=== PATIENT | female | born 1955 | race Caucasian/White ===

== ENCOUNTER 2016-11-19 12:35 | Emergency (ER) | payer OTHER ==
[2016-11-19] MEDS ORDERED: HYDROcodone/Acetaminophen 5/325 mg Tablet ONE (13:14)
[2016-11-19] MEDS ORDERED: Lidocaine 1% 20 ML MDV ONE (13:17)
--- NOTE | 2016-11-19 14:18 | ERRECORD ---
[facility] EMERGENCY RECORD HPI HAND (13:53 PMYE) CHIEF COMPLAINT: Patient presents for evaluation of injury, to the right hand. MECHANISM OF INJURY: Mechanism of injury fall. LOCATION: right 5th finger. QUALITY: Pain is sharp in nature. SEVERITY: Maximum severity of symptoms moderate, Currently symptoms are moderate. TIME COURSE: Sudden onset of symptoms. ASSOCIATED WITH: 61 y/o Female s/p mechanical fall in which she tripped and fell forward injuring her rt 5th digit. noticeable deformity to digit. Also hit head off a cooler. No LOC No Amnesia to event. No Vomiting. EXACERBATED BY: Patient's condition exacerbated by movement. RELIEVED BY: Patient's condition relieved by rest. ROS (13:55 PMYE) CONSTITUTIONAL: Negative constitutional review of systems, Historian denies chills, denies fatigue, denies fever. EYES: Negative eye review of systems, Historian denies eye pain, denies eye redness, denies eye discharge. ENT: Negative ears, nose, throat review of systems, Historian denies dysphasia, denies epistaxis, denies otalgia, denies sore throat. CARDIOVASCULAR: Negative cardiovascular review of systems, Historian denies chest pain, denies dyspnea on exertion, denies syncope, denies palpitations. RESPIRATORY: Negative respiratory review of systems, Historian denies cough, denies shortness of breath, denies wheezing. GI: Negative gastrointestinal review of systems, Historian denies abdominal pain, denies constipation, denies diarrhea, denies nausea, denies vomiting. GENITOURINARY FEMALE: Negative genitourinary review of systems, Historian denies dysuria, denies urgency, denies vaginal bleeding, denies vaginal discharge. MUSCULOSKELETAL: Historian denies arthralgias, reports injury, denies myalgias. SKIN: Negative skin review of systems, Historian denies rash, denies skin changes. NEUROLOGIC: Negative neurologic review of systems, Historian denies confusion, denies focal weakness, denies headache. PSYCHIATRIC: Negative psychiatric review of systems. 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 PSYCHIATRIC HISTORY: No previous psychiatric history. SOCIAL HISTORY: Patient has no smoking history, Patient denies alcohol use, Patient denies drug use. &a-1R&a+25V*p+0X*u1678X*c202B*c15G*c2P*p-0X&a-25V&a+1R Name: Tigist Blunt : 1955 F61 MedRec: [id number] AcctNum: [id number] Prepared: Pamela Nov 19, 2016 20:09 by Interface Page 1 of 3 pMD [facility] EMERGENCY RECORD KNOWN ALLERGIES No Known Drug Allergies CURRENT MEDICATIONS Stalevo 75: TABLET : Strength - 18.75 mg-75 mg-200 mg : ORAL Patient Dose: Oral 3 times a day. (12:44 EPIE) Requip XL: TABLET, EXTENDED RELEASE 24 HR : Strength - 12 mg : ORAL Patient Dose: 12 mg Oral once a day. (12:45 EPIE) VITAL SIGNS (12:38 EPIE) VITAL SIGNS: BP: 165/72, Pulse: 78, Resp: 20 (Non-Labored), Temp: 97.9 (Oral), Pain: 9, O2 sat: 99 on Room Air, Time: 11/19/2016 12:38. PHYSICAL EXAM CONSTITUTIONAL: Vital Signs Reviewed, Patient afebrile, Pulse normal, Blood pressure normal, Respiratory rate normal, Patient appears non toxic. (13:55 PMYE) HEAD: Head exam included findings of head atraumatic, normocephalic. (13:55 PMYE) EYES: Eye exam included findings of eyelids normal to inspection, Pupils equally round and reactive to light, Extraocular muscles intact. (13:55 PMYE) ENT: ENT exam normal, Pharynx exam normal, Uvula exam normal, Tonsil exam normal. (13:55 PMYE) NECK: Neck exam normal. (13:55 PMYE) RESPIRATORY CHEST: Respiratory and chest exam normal, Breath sounds clear, No wheezing, No rales. (13:55 PMYE) ABDOMEN FEMALE: Abdominal exam normal, Abdominal exam included findings of abdomen nontender, Bowel sounds normal. (13:55 PMYE) BACK: Back exam normal. (13:55 PMYE) UPPER EXTREMITY: Rt 5th finger is ulnarly deformed w/ approx. 20 degrees of displacement. NV intact. (13:56 PMYE) NEURO: Neuro exam normal, [place] coma scale 15, Neuro exam findings include patient oriented to person, place and time, Speech normal. (13:55 PMYE) SKIN: Skin exam normal. (13:55 PMYE) PSYCHIATRIC: Psychiatric exam normal, Psychiatric exam included findings of patient oriented to person place and time, Normal affect. (13:55 PMYE) MEDICATION ADMINISTRATION SUMMARY Drug Name: Wood, Dose Ordered: 5-325 mg, Route: Oral, Status: Given, Time: 13:20 11/19/2016, Detailed record available in Medication Service section. DOCTOR NOTES (14:03 PMYE) TEXT: Fracture reduced w/out issue or complication. NV &a-1R&a+25V*p+0X*g6051U*c202B*c15G*c2P*p-0X&a-25V&a+1R Name: Tigist Blunt : 1955 F61 MedRec: [id number] AcctNum: [id number] Prepared: Pamela Nov 19, 2016 20:09 by Interface Page 2 of 3 pMD [facility] EMERGENCY RECORD intact s/p. will f/u w/ ortho. Wood 5/325 disp: 15 si po q 4 PRN pain prescribed. PROBLEM LIST No recorded problems DIAGNOSIS (14:02 PMYE) FINAL: PRIMARY: proximal 5th phalynx fracture. PRESCRIPTION No recorded prescriptions DISPOSITION PATIENT: Disposition Type: Discharge, Disposition: *Discharge Home. (14:02 PMYE) Patient left the department. (14:13 EPIE) Grant: EPIE=MAYA De La Torre, Nohemi PMYE=DO Velásquez Paul &a-1R&a+25V*p+0X*u1315H*c202B*c15G*c2P*p-0X&a-25V&a+1R Name: Tigist Blunt Bertrand : 1955 F61 MedRec: [id number] AcctNum: [id number] Prepared: Pamela Nov 19, 2016 20:09 by Interface Page 3 of 3 pMD MTDD
--- NOTE | 2016-11-19 14:25 | PICIS ---
[facility] EMERGENCY RECORD TRIAGE ([place] Nov 19, 2016 12:40 EPIE) TRIAGE NOTES: Pt reports that she slipped in the garage. Pt reports hitting forehead on ground aswell as knee and hands. Pt has deforemity to right 5th finger. No LOC. Not on blood thinners. Pt reports no head pain but mostly finger pain. ([place] Nov 19, 2016 12:40 EPIE) PATIENT: NAME: Tigist Blunt, AGE: 61, GENDER: female, : Sun1955, TIME OF GREET: [place] Nov 19, 2016 12:35, PREFERRED LANGUAGE: Niuean, ETHNICITY: Not or , ECODE BILLING MAP: [facility], Zip Code: [address], KG WEIGHT: 81.19, PHONE: , , , PERSON ID: [id number]. ([place] Nov 19, 2016 12:40 EPIE) COMPLAINT: FALL/HEAD & RT LITTLE FINGER INJURY. ([place] Nov 19, 2016 12:40 EPIE) ADMISSION: URGENCY: 3 Urgent, ADMISSION SOURCE: Home, TRANSPORT: CAR, BED: TRIAGE. ([place] Nov 19, 2016 12:40 EPIE) TRIAGE SCREENING: Patient denies suicidal ideation, Patient denies presence of domestic violence. (12:42 EPIE) TREATMENTS IN PROGRESS: Treatments given Prehospital: none. (12:42 EPIE) PROVIDERS: TRIAGE NURSE: Nohemi De La Torre RN. ([place] Nov 19, 2016 12:40 EPIE) VITAL SIGNS: BP 165/72, Pulse 78, Resp 20, (Non-Labored), Temp 97.9, (Oral), Pain 9, O2 Sat 99, on Room Air, Time 11/19/2016 12:38. (12:38 EPIE) KNOWN ALLERGIES No Known Drug Allergies CURRENT MEDICATIONS Stalevo 75: TABLET : Strength - 18.75 mg-75 mg-200 mg : ORAL Patient Dose: Oral 3 times a day. (12:44 EPIE) Requip XL: TABLET, EXTENDED RELEASE 24 HR : Strength - 12 mg : ORAL Patient Dose: 12 mg Oral once a day. (12:45 EPIE) VITAL SIGNS (12:38 EPIE) VITAL SIGNS: BP: 165/72, Pulse: 78, Resp: 20 (Non-Labored), Temp: 97.9 (Oral), Pain: 9, O2 sat: 99 on Room Air, Time: 11/19/2016 12:38. NURSING ASSESSMENT: HEAD-TO-TOE (12:45 EPIE) CONSTITUTIONAL: Patient arrives ambulatory, Gait steady, History obtained from patient, Patient appears comfortable, Patient cooperative, Patient alert, Oriented to person, place and time, Skin warm, Skin dry, Skin normal in color, Mucous membranes pink, Mucous membranes moist, Patient is well-groomed, Pt reports that she slipped in the garage. Pt reports hitting forehead on ground aswell as knee and hands. Pt has deforemity to right 5th finger. No LOC. Not &a-1R&a+25V*p+0X*t3518M*c202B*c15G*c2P*p-0X&a-25V&a+1R Name: Tigist Blunt : 1955 F61 MedRec: [id number] AcctNum: [id number] Prepared: Pamela Nov 19, 2016 20:15 by Interface Page 1 of 6 pMD [facility] EMERGENCY RECORD on blood thinners. Pt reports no head pain but mostly finger pain. PAIN: throbbing pain, right 5th digit, Onset of pain 11/19/2016, constant, on a scale 0-10 patient rates pain as 9. SKIN: Skin assessment findings include skin warm, Skin dry, Skin normal in color, Inspection findings include redness, to forhead, Inspection findings include swelling, to right 5th digit. NEURO: Able to close eyes, Face symmetrical, Speech normal, GCS:, Eye opening: (4) - Spontaneous, Verbal: (5) - Oriented/conversive, Motor: (6) - Obeys commands/Spontaneous, GCS Total: 15, no associated vomiting. RESPIRATORY/CHEST: Breath sounds clear, Respiratory assessment findings include respiratory effort easy, Respirations regular, Conversing normally, Neck and chest exam findings include trachea midline, Chest expansion equal, Chest movement symmetrical. CARDIOVASCULAR: Cardiovascular assessment findings include heart rate normal. ABDOMEN: Abdomen assessment findings include abdomen symmetrical, Abdomen soft, no associated nausea, no associated vomiting. RIGHT UPPER EXTREMITY: Right upper extremity assessment findings include capillary refill less than 2 seconds, Skin color normal to hand, Skin temperature to hand warm, Distal sensation intact, Muscle tone normal, Inspection findings include deformity, to 5th digit. NURSING PROCEDURE: BEDSIDE RADIOLOGY BEDSIDE RADIOLOGY: Portable x-ray performed, of the right hand. (12:54 EPIE) Portable x-ray performed, of the right hand, Notes: Post reduction films. (13:35 EPIE) FOLLOW-UP: After procedure, capillary refill less than 2 seconds, After procedure, distal circulation intact, After procedure, distal motor intact, After procedure, distal sensation intact, After procedure, distal pulses present. (12:54 EPIE) After procedure, capillary refill less than 2 seconds, After procedure, distal circulation intact, After procedure, distal motor intact, After procedure, distal sensation intact, After procedure, distal pulses present. (13:35 EPIE) NURSING PROCEDURE: DISCHARGE NOTE (14:09 EPIE) DISCHARGE: Patient discharged to home, ambulating without assistance, family driving, accompanied by //partner, Summary of Care printed/ provided, Discharge instructions given to patient, Simple or moderate discharge teaching performed, Prescriptions given and instructions on side effects given, Name of prescription(s) given: Radu schilling person(s) verbalized understanding of discharge instructions and follow-up care. BELONGINGS: Belongings and valuables with patient upon arrival to &a-1R&a+25V*p+0X*b8754E*c202B*c15G*c2P*p-0X&a-25V&a+1R Name: Tigist Blunt : 1955 F61 MedRec: [id number] AcctNum: [id number] Prepared: Pamela Nov 19, 2016 20:15 by Interface Page 2 of 6 pMD [facility] EMERGENCY RECORD the Emergency Department include:, Belongings and valuables with patient at time of discharge include:, Belongings remain with patient, Valuables remain with patient. NURSING PROCEDURE: NURSE NOTES NURSES NOTES: Notes: Patient resting with RR even and unlabored. No new complaints at this time. Splinting currently being performed. NAD. Ice given for forehead at this time. (13:29 EPIE) Notes: talking with pt at this time. RR even and unlabored. NAD> A&OX4, GCS 15. (13:42 EPIE) NURSING PROCEDURE: SPLINTING (13:24 EPIE) SPLINTING: Splinting indicated for fracture care, Splint applied to, Notes: ERMD reduced deformity prior to splinting. Lido 1%without epi was used to numb finger, the fifth finger, on the right hand, Christen GALAVIZ, short arm posterior mold applied, maral tape applied. 3inch andrew wrap applied. FOLLOW-UP: After procedure, capillary refill less than 2 seconds, After procedure, distal circulation intact, After procedure, distal motor function intact, After procedure, distal sensation intact, After procedure, distal pulses present. ORDER DETAILS Order Name: XR Finger(s) Rt Min 2 View, Status: Active, Time: 12:42 11/19/2016, User: GHANSHYAM, - Ordered for: DO Velásquez Paul, - Entered by: MAYA Lerma, Carmina Santiago Nov 19, 2016 12:42, - Quantity: 1, Order Name: XR Finger(s) Rt Min 2 View, Status: Active, Time: 13:26 11/19/2016, User: GHANSHYAM, - Ordered for: DO Velásquez Paul, - Entered by: MAYA Lerma, Carmina Santiago Nov 19, 2016 13:26, - Quantity: 1. MEDICATION ADMINISTRATION SUMMARY Drug Name: Halsey, Dose Ordered: 5-325 mg, Route: Oral, Status: Given, Time: 13:20 11/19/2016, Detailed record available in Medication Service section. MEDICATION SERVICE (13:20 PMYE) Halsey: Order: Halsey (hydrocodone bitartrate/acetaminophen) - Dose: 5-325 mg : Oral Schedule: Now Ordered by: Jarek Velásquez DO Entered by: DO Pamela Berkowitz Nov 19, 2016 13:36 Documented as given by: MAYA Trejo Nov 19, 2016 13:20 Patient, Medication, Dose, Route and Time verified prior to &a-1R&a+25V*p+0X*z2042J*c202B*c15G*c2P*p-0X&a-25V&a+1R Name: Tigist Blunt : 1955 F61 MedRec: [id number] AcctNum: [id number] Prepared: Pamela Nov 19, 2016 20:15 by Interface Page 3 of 6 pMD [facility] EMERGENCY RECORD administration. Amount given: 5-325mg, Site: Medication administered P.O., Correct patient, time, route, dose and medication confirmed prior to administration, Patient advised of actions and side-effects prior to administration, Allergies confirmed and medications reviewed prior to administration. HPI HAND (13:53 PMYE) CHIEF COMPLAINT: Patient presents for evaluation of injury, to the right hand. MECHANISM OF INJURY: Mechanism of injury fall. LOCATION: right 5th finger. QUALITY: Pain is sharp in nature. SEVERITY: Maximum severity of symptoms moderate, Currently symptoms are moderate. TIME COURSE: Sudden onset of symptoms. ASSOCIATED WITH: 61 y/o Female s/p mechanical fall in which she tripped and fell forward injuring her rt 5th digit. noticeable deformity to digit. Also hit head off a cooler. No LOC No Amnesia to event. No Vomiting. EXACERBATED BY: Patient's condition exacerbated by movement. RELIEVED BY: Patient's condition relieved by rest. ROS (13:55 PMYE) CONSTITUTIONAL: Negative constitutional review of systems, Historian denies chills, denies fatigue, denies fever. EYES: Negative eye review of systems, Historian denies eye pain, denies eye redness, denies eye discharge. ENT: Negative ears, nose, throat review of systems, Historian denies dysphasia, denies epistaxis, denies otalgia, denies sore throat. CARDIOVASCULAR: Negative cardiovascular review of systems, Historian denies chest pain, denies dyspnea on exertion, denies syncope, denies palpitations. RESPIRATORY: Negative respiratory review of systems, Historian denies cough, denies shortness of breath, denies wheezing. GI: Negative gastrointestinal review of systems, Historian denies abdominal pain, denies constipation, denies diarrhea, denies nausea, denies vomiting. GENITOURINARY FEMALE: Negative genitourinary review of systems, Historian denies dysuria, denies urgency, denies vaginal bleeding, denies vaginal discharge. MUSCULOSKELETAL: Historian denies arthralgias, reports injury, denies myalgias. SKIN: Negative skin review of systems, Historian denies rash, denies skin changes. NEUROLOGIC: Negative neurologic review of systems, Historian denies confusion, denies focal weakness, denies headache. PSYCHIATRIC: Negative psychiatric review of systems. 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 PSYCHIATRIC HISTORY: No previous psychiatric history. SOCIAL HISTORY: Patient has no smoking history, Patient denies alcohol use, Patient denies drug use. PHYSICAL EXAM CONSTITUTIONAL: Vital Signs Reviewed, Patient afebrile, Pulse normal, Blood pressure normal, Respiratory rate normal, Patient appears non toxic. (13:55 PMYE) HEAD: Head exam included findings of head atraumatic, normocephalic. (13:55 PMYE) EYES: Eye exam included findings of eyelids normal to inspection, Pupils equally round and reactive to light, Extraocular muscles intact. (13:55 PMYE) ENT: ENT exam normal, Pharynx exam normal, Uvula exam normal, Tonsil exam normal. (13:55 PMYE) NECK: Neck exam normal. (13:55 PMYE) RESPIRATORY CHEST: Respiratory and chest exam normal, Breath sounds clear, No wheezing, No rales. (13:55 PMYE) ABDOMEN FEMALE: Abdominal exam normal, Abdominal exam included findings of abdomen nontender, Bowel sounds normal. (13:55 PMYE) BACK: Back exam normal. (13:55 PMYE) UPPER EXTREMITY: Rt 5th finger is ulnarly deformed w/ approx. 20 degrees of displacement. NV intact. (13:56 PMYE) NEURO: Neuro exam normal, [place] coma scale 15, Neuro exam findings include patient oriented to person, place and time, Speech normal. (13:55 PMYE) SKIN: Skin exam normal. (13:55 PMYE) PSYCHIATRIC: Psychiatric exam normal, Psychiatric exam included findings of patient oriented to person place and time, Normal affect. (13:55 PMYE) EVENTS TRANSFER: Triage to Emergency Triage. (Pamela Nov 19, 2016 12:40 EPIE) Emergency Triage to Emergency Room -04. (12:42 EPIE) Removed from Emergency Emergency Room -04. (14:13 EPIE) DOCTOR NOTES (14:03 PMYE) TEXT: Fracture reduced w/out issue or complication. NV intact s/p. will f/u w/ ortho. Halsey disp: 15 si po q 4 PRN pain prescribed. ORTHO FRACTURE CARE (13:59 PMYE) FRACTURE CARE: Side and/or site verified, Patient identification confirmed, Verbal consent obtained, Pre-procedure assessment: capillary refill less than 2 seconds, Distal sensation intact, Distal motor function normal, No signs of compartment syndrome, Hand &a-1R&a+25V*p+0X*u0608H*c202B*c15G*c2P*p-0X&a-25V&a+1R Name: Tigist Blunt : 1955 F61 MedRec: [id number] AcctNum: [id number] Prepared: Pamela Nov 19, 2016 20:15 by Interface Page 5 of 6 pMD [facility] EMERGENCY RECORD fracture noted, Closed treatment of finger proximal phalanx fracture with manipulation completed, on the right hand, Cast applied, Ulnar gutter, Ulnar gutter post mold applied, Immobilized in flexion, Distal sensation intact, Distal motor function normal, Signs of compartment syndrome, Digital block preformed prior to fracture reduction. Post reduction film confirms improved alignment. NO complications. PROBLEM LIST No recorded problems DIAGNOSIS (14:02 PMYE) FINAL: PRIMARY: proximal 5th phalynx fracture. DISPOSITION PATIENT: Disposition Type: Discharge, Disposition: *Discharge Home. (14:02 PMYE) Patient left the department. (14:13 EPIE) INSTRUCTION (14:03 PMYE) DISCHARGE: FINGER FRACTURE CLOSED. FOLLOWUP: MD Brady, Annamarie, Clinic, [address] [facility], [address], [facility] [address], , MD Johnny, Randall, Orthopedics, [address] [facility], [address], [facility] [address], , Follow up with Primary Care Physician in 1-2 days, Follow up with Specialist as soon as possible. SPECIAL: Follow-up with your PCP. PRESCRIPTION No recorded prescriptions IMAGING RX: Image captured from scanner. (14:06 EPIE) *DISCHARGE INSTRUCTIONS RECEIPT: Image captured from scanner. (14:11 EPIE) *SUPPLY CHARGE SHEET: Image captured from scanner. (14:13 EPIE) ADMIN DIGITAL SIGNATURE: DO Velásquez Paul. (14:03 PMYE) DO Velásquez Paul. (20:04 PMYE) Grant: EPIE=MAYA De La Torre, Nohemi PMYE=DO Velásquez Paul &a-1R&a+25V*p+0X*m3496A*c202B*c15G*c2P*p-0X&a-25V&a+1R Name: Tigist Blunt : 1955 F61 MedRec: [id number] AcctNum: [id number] Prepared: Pamela Nov 19, 2016 20:15 by Interface Page 6 of 6 pMD MTDD
--- NOTE | 2016-11-19 15:27 | RAD ---
THREE VIEWS RIGHT SMALL FINGER: Indication: Fall. FINDINGS: There is a mild to moderately displaced fracture involving the small finger proximal phalanx. The f racture is predominately spirally oriented with rotation of the distal fracture fragment radially. There is also some slight lateral and proximal displacement of the distal fracture fragment one-half shaft width. No additional fracture is evident. IMPRESSION: Mild to moderately displaced fracture of the small finger proximal phalanx. There is no evidence of intraarticular involvement. POS: REHAN
--- NOTE | 2016-11-19 16:13 | RAD ---
THREE VIEWS RIGHT SMALL FINGER: Indication: Post reduction. IMPRESSION: Since the comparison examination there has been interval closed reduction of the spiral fracture inv olving the right small finger proximal phalanx. Fracture alignment is near anatomic. Overlying anthony ster splint slightly limits image detail. POS: REHAN
== END 2016-11-19 14:09 | disposition home or self-care (01) ==
LOC: NAV ERS 12:35
DX: S62.616A Displaced fracture of proximal phalanx of right little finger, initial encounter for closed fracture (principal); W01.198A Fall on same level from slipping, tripping and stumbling with subsequent striking against other object, initial encounter
CPT/HCPCS: 26725; J2001

== ENCOUNTER 2020-06-15 19:13 | Emergency (ER) | payer OTHER ==
[2020-06-15] MEDS ORDERED: traMADol HCl 50 MG TAB ONE (20:01)
--- NOTE | 2020-06-15 20:37 | RAD ---
3 VIEWS RIGHT WRIST: Date: 06/17/2020 HISTORY: Fall in kitchen with pain. FINDINGS: Three views of the right wrist show a fracture of the distal radial metaphysis. This appears to exten d to the radiocarpal joint. An associated ulnar styloid process fracture is seen. IMPRESSION: Interarticular distal radius fracture. POS: EAA
== END 2020-06-15 20:10 | disposition home or self-care (01) ==
LOC: NAV ERS 19:13
DX: S59.201A Unspecified physeal fracture of lower end of radius, right arm, initial encounter for closed fracture (principal); G20 Parkinson's disease; Z79.899 Other long term (current) drug therapy; W18.30XA Fall on same level, unspecified, initial encounter; Y92.000 Kitchen of unspecified non-institutional (private) residence as the place of occurrence of the external cause
CPT/HCPCS: 29125

== ENCOUNTER 2020-06-16 05:52 | Emergency (ER) | payer OTHER ==
[2020-06-16] MEDS ORDERED: Ondansetron ODT 4 MG TAB ONE (06:23)
[2020-06-16] MEDS ORDERED: Morphine 4 MG/ML VIAL ONE (06:23)
== END 2020-06-16 06:50 | disposition home or self-care (01) ==
LOC: NAV ERS 05:52
DX: S52.501D Unspecified fracture of the lower end of right radius, subsequent encounter for closed fracture with routine healing (principal); G20 Parkinson's disease; Z79.899 Other long term (current) drug therapy; W19.XXXD Unspecified fall, subsequent encounter
CPT/HCPCS: 96372; 99283; J2270; Q0162

== ENCOUNTER 2022-03-16 12:06 | Emergency (ER) | payer MEDICARE ==
[~2022-03-16 12:06] MED LIST: Iopamidol 370 76% 100 ML VIAL ONE
[2022-03-16 12:36] LABS: #Basophils 0.1 thou/uL (0.0-0.2); #Eosinphils 0.1 thou/uL (0.0-0.7); #Lymphocytes 1.8 thou/uL (1.20-3.40); #Monocytes 0.6 thou/uL (0.11-0.59); #Neutrophils 2.9 thou/uL (1.40-6.50); %Basophils 1.7 % (0.0-1.0); %Eosinophils 2.4 % (0.0-10.0); %Lymphocytes 32.4 % (21.0-51.0); %Neutrophils 53.4 % (42.0-75.0); Hemoglobin 14.9 g/dL (12.0-16.0); Mean Corpuscular HGB CONC 31.5 g/dL (32.0-36.0); Mean Corpuscular Hemoglobin 30.2 pg (27.0-31.0); Mean Corpuscular Volume 95.9 fL (78.0-98.0); Mean Platelet Volume 9.2 fL (7.4-10.4); Platelet Count 212 thou/uL (130-400); RBC Distribution Width 11.2 % (11.5-14.5); Red Blood Cell (RBC) Count 4.95 mill/uL (4.20-5.40); White Blood Cell (WBC) Count 5.4 thou/uL (4.8-10.8)
[2022-03-16 12:47] LABS: Anion Gap 16 mmol/L (10-20); BUN (Urea Nitrogen) 15 mg/dL (9.8-20.1); Calc. Creatinine Clearance 0 mL/min (70-130); Calcium 9.7 mg/dL (7.8-10.44); Carbon Dioxide 25 mmol/L (23-31); Chloride 105 mmol/L (98-107); Glucose 101 mg/dL (80-115); Potassium 4.2 mmol/L (3.5-5.1); Sodium 142 mmol/L (136-145)
== END 2022-03-16 14:20 | disposition home or self-care (01) ==
LOC: NAV ERS 12:06
DX: R07.2 Precordial pain (principal)
CPT/HCPCS: 71275; 80048; 84484; 85025; 93005; Q9967

== ENCOUNTER 2023-07-05 13:31 | Outpatient (CLI) | payer MEDICARE | END 2023-07-05 13:32 | disposition home or self-care (01) | LOC: NAV RAD 13:31 | PROVIDERS: ATTEND Family Medicine | DX: M25.812 Other specified joint disorders, left shoulder (principal); M25.512 Pain in left shoulder ==

== ENCOUNTER 2025-06-29 05:19 | Emergency (ER) | payer MEDICARE ==
[2025-06-29] MEDS ORDERED: Ketorolac Tromethamine 30 MG (1 mL) VIAL ONE (06:04)
[2025-06-29] MEDS ORDERED: HYDROcodone/Acetaminophen 5/325 mg Tablet ONE (07:46)
== END 2025-06-29 08:00 | disposition home or self-care (01) ==
LOC: NAV ERS 05:19
DX: S32.018A Other fracture of first lumbar vertebra, initial encounter for closed fracture (principal); S22.088A Other fracture of T11-T12 vertebra, initial encounter for closed fracture; S32.029A Unspecified fracture of second lumbar vertebra, initial encounter for closed fracture; S32.039A Unspecified fracture of third lumbar vertebra, initial encounter for closed fracture; K21.9 Gastro-esophageal reflux disease without esophagitis; E78.00 Pure hypercholesterolemia, unspecified; Z79.899 Other long term (current) drug therapy; W01.10XA Fall on same level from slipping, tripping and stumbling with subsequent striking against unspecified object, initial encounter; Y93.89 Activity, other specified; Y92.511 Restaurant or cafe as the place of occurrence of the external cause
CPT/HCPCS: 72131; 72192; 96372; J1885